=== PATIENT | female | born 1950 ===

== ENCOUNTER → 2024-12-23 | Day surgery (SDC) | payer OTHER ==
[~2024-12-23] MED LIST: DIPHENHYDRAMINE HCL 50 MG/ML VIAL 1ML IV ONE; ENALAPRILAT DIHYDRATE 1.25 MG/ML VIAL IV ONE; MIDAZOLAM HCL 2 MG/2 ML VIAL IV ONE; fentaNYL CITRATE 50 MCG/ML AMPUL IV PUSH ONE
== END | disposition home or self-care (01) ==
LOC: ADM 12-19 14:45 → AMB-ENDOS 06:09
PROVIDERS: ATTEND Colon & Rectal Surgery
DX: D12.0 Benign neoplasm of cecum (principal); D12.2 Benign neoplasm of ascending colon; K63.5 Polyp of colon